=== PATIENT | male | born 1970 | race Caucasian/White ===

== ENCOUNTER → 2018-03-23 | Outpatient (CLI) | payer BC ==
[~2018-03-23] MED LIST: GADOBUTROL 10 MMOL/10 ML VIAL IV ONE
--- NOTE | 2018-03-23 18:00 | KCIC ---
MRI of the lumbar spine without and with contrast 03/23/2018 CLINICAL HISTORY: Low back pain with right leg numbness. TECHNIQUE: Unenhanced T1-weighted and T2-weighted sagittal and axial and inversion recovery sagittal images of the lumbar spine were obtained. After the intravenous administration of 8 cc of Gadavist, enhanced T1-weighted sagittal and axial images of the lumbar spine were obtained. FINDINGS: No previous imaging studies are available for comparison. Minimal S-shaped curvature of the thoracolumbar spine is seen. Degenerative signal changes are seen involving the L4-5 and L5-S1 discs. Degenerative signal changes are seen within the marrow surrounding these discs. Loss of height of the L4-5 disc is noted. The conus medullaris is within normal limits in morphology, position, and signal characteristics. At the L1-2, L2-3 and L3-4 disc spaces there are minimal to mild generalized disc bulges. Degenerative changes are seen involving the facet joints bilaterally. There is mild ligamentum flavum hypertrophy bilaterally. These findings when combined do not result in significant central spinal canal or neural foraminal stenosis. At the L4-5 disc space, the patient is post right hemilaminotomy. There is a mild to moderate generalized disc bulge. Superimposed on this disc bulge is a right paracentral focal recurrent disc herniation. This extrudes inferiorly. The disc herniation measures 1.8 x 1.2 x 1.1 cm in craniocaudal, transverse and AP dimensions. Degenerative changes are seen involving the facet joints bilaterally. There is moderate left sided ligamentum flavum hypertrophy. These findings when combined result in severe right greater than left central spinal canal stenosis. The disc herniation appears to impinge upon the right L5 nerve root within the right lateral aspect of the central spinal canal. No neural foraminal stenosis is seen. At the L5-S1 disc space there is a moderate generalized disc bulge. This is eccentric to the left. Superimposed on this disc bulge is a left lateral disc protrusion which measures 5 mm in AP diameter. Degenerative changes are seen involving the facet joints bilaterally. There is mild to moderate ligamentum flavum hypertrophy bilaterally. These findings when combined result in mild to moderate left greater than right central spinal canal stenosis. Severe left neural foraminal stenosis is seen. The right neural foramen is patent. IMPRESSION: 1. Post right hemilaminotomy at L4-5. 2. The changes of degenerative disc disease are seen throughout the lumbar spine. At the L4-5 disc space a large right paracentral focal recurrent disc herniation is seen which extrudes inferiorly. It contributes to severe right greater than left central spinal canal stenosis and appears to impinge upon the right L5 nerve root within the right lateral aspect of the central spinal canal. Mild to moderate left greater than right central spinal canal stenosis and severe left neural foraminal stenosis is seen at L5-S1. Electronically signed by: Jose Lowery MD (03/23/2018 5:56 PM) [id number]
== END | disposition home or self-care (01) ==
LOC: KCIC MRI 14:18
PROVIDERS: ATTEND Family Medicine
DX: M51.36 Other intervertebral disc degeneration, lumbar region (principal); M48.07 Spinal stenosis, lumbosacral region; M51.27 Other intervertebral disc displacement, lumbosacral region
CPT/HCPCS: 72158; A9585